=== PATIENT | female | born 1955 | race Caucasian/White ===

== ENCOUNTER 2017-07-01 08:19 | Day surgery (SDC) | payer OTHER ==
[~2017-07-01] VITALS: Ht 162.6 cm; Wt 68.2 kg
[~2017-07-01 08:19] MED LIST: ASPI1TAB57 PO; BLAC200C3 PO; CYCL10TA PO; DILA4TAB10 PO; ECHI500C5 PO; FEXO15TA PO; FIBE625T10 PO; FISH1000 PO; FLAX100013 PO; MULT1TAB46 PO; PROB1CAP12; PYRI100T PO; SELE200T8 PO; VITA20003; VITA200T8; VITA250T3 PO; VITA500T35 PO; VITA600C4 PO; VITACAP7 PO; ZOFR4TAB PO
[2017-07-01] MEDS ORDERED: IOHEXOL 300 MG/ML 50 ML BTL (for RAD DIAG) IT ONE (08:20)
[2017-07-01 08:35] VITALS: BP 128/80; PULSE 80; RESP 20; TEMP 98; O2SAT 98
[2017-07-01] MEDS ORDERED: SODIUM CHLOR 0.9% 1000 ML INJ 1,000 ML IV SCH (09:00)
[2017-07-01 09:10] LABS: APTT (PATIENT) 24.8 SEC (24.3-30.1); INTERNATIONAL NORMALIZED RATIO 0.9 RATIO; PROTHROMBIN TIME - PATIENT 10.3 SEC (9.8-11.6)
[2017-07-01 09:15] LABS: BICARBONATE 25.6 MEQ/L (21.0-32.0); POTASSIUM 4.1 MEQ/L (3.5-5.1)
[2017-07-01] MEDS ORDERED: VITA250T3 PO (09:16)
[2017-07-01] MEDS ORDERED: GLUC15009 PO (09:16)
[2017-07-01] MEDS ORDERED: PERC5TAB12 PO (09:16)
[2017-07-01] MEDS ORDERED: CIPR250T52 PO (09:16)
[2017-07-01] MEDS ORDERED: MAGN250T11 PO (09:16)
[2017-07-01] MEDS ORDERED: ZINC30TA PO (09:16)
[2017-07-01] MEDS ORDERED: PROB1CAP12 PO (09:16)
[2017-07-01] MEDS ORDERED: CALC500C16 CHEW (09:16)
[2017-07-01] MEDS ORDERED: FEXO15TA PO (09:16)
--- NOTE | 2017-07-01 11:43 | PD.RAD ---
Post Procedure Progress Note Pre Procedure Diagnosis: (1) Cerebrospinal fluid rhinorrhea Post Procedure Diagnosis: (1) Cerebrospinal fluid rhinorrhea Procedure Date: Jul 01, 2017 Supervising Radiologist: Victor Hugo Nguyen Proceduralist/Assist: Marilyn Newton, RT(R)(CV), Tee Hart RT(R) Anesthesia: Local Plan of Activity Patient to Unit: ROPU Patient Condition: Good See PACS Report for procedural detail/treatment Spinal Procedure Myelogram L2-L3 Fluid Description: Victor Hugo Soni MD Jul 01, 2017 11:43
[2017-07-01 11:45] VITALS: BP 140/71; PULSE 75; RESP 20; TEMP 97.7; O2SAT 98
[2017-07-01] MEDS ORDERED: ACETAMINOPHEN 325 MG TAB PO PRN (11:45)
[2017-07-01] MEDS ORDERED: ONDANSETRON HCL 4 MG/2 ML VIAL IV PUSH PRN (11:45)
[2017-07-01] MEDS ORDERED: HYDROmorphone HCL PF 1 MG/ML VIAL IV ONE (13:00)
[2017-07-01 13:10] VITALS: BP 130/70; PULSE 76; RESP 20; O2SAT 94
--- NOTE | 2017-07-01 13:55 | RADRPT ---
EXAM DATE/TIME: 07/01/2017 11:16 [facility] COMPARISON: No previous studies available for comparison. INDICATIONS : Patient presents with headache and history of Cerebrospinal fluid leak in need of Lumbar Puncture and cisternogram for evaluation. MEDICAL HISTORY : PE DVT CSF leak Headaches SURGICAL HISTORY : RT Nephrectomy Nasal repair Hysterectomy Tubal ligation Appendectomy Rt breast lumpectomy Brain surgery for CSF leak Rt hallux joint replacement ENCOUNTER: Initial ACUITY: 3 weeks PAIN SCORE: 6/10 LOCATION: Headache LUMBAR PUNCTURE TIME: 1133 hours FLUORO TIME: 2.0 minutes IMAGE SERIES: 1 CONTRAST: 7 cc Omnipaque (iohexol) 300 ACCESS LEVEL: L2-3 PROCEDURE : 1. Fluoroscopic guided lumbar puncture. The risks, benefits and alternatives to the procedure were explained and verbal and written consent w as obtained. The site was prepped in sterile fashion. Full sterile technique was used, including ca p, mask, sterile gloves and gown and a large sterile sheet. Hand hygiene and 2% chlorhexidine and/or betadine/alcohol prep was utilized per protocol for cutaneous antisepsis. The skin and subcutaneous tissues were infiltrated with local anesthetic solution. With fluoroscopic guidance the lumbar thecal sac was punctured at the level above. The fluid describ ed above was removed without difficulty. The patient tolerated the procedure well and there were no complications. CONCLUSION: Uncomplicated fluoroscopically guided lumbar puncture. Victor Hugo Nguyen MD on July 01, 2017 at 13:54 Board Certified Radiologist. This report was verified electronically.
[2017-07-01 15:30] VITALS: BP 112/68; PULSE 70; RESP 20; O2SAT 97
--- NOTE | 2017-07-01 16:15 | RADRPT ---
EXAM DATE/TIME: 07/01/2017 14:42 [facility] COMPARISON: No previous studies available for comparison. INDICATIONS : Post cisternogram RADIATION DOSE: 56.35 CTDIvol (mGy) MEDICAL HISTORY : None SURGICAL HISTORY : Appendectomy. Hysterectomy. ENCOUNTER: Initial ACUITY: 1 day PAIN SCALE: 0/10 LOCATION: cranial TECHNIQUE: Multiple contiguous axial images were obtained of the head. Using automated exposure control and adj ustment of the mA and/or kV according to patient size, radiation dose was kept as low as reasonably a chievable to obtain optimal diagnostic quality images. DICOM format image data is available electro nically for review and comparison. FINDINGS: CT scan was performed with multiplanar reconstruction following instillation of intrathecal contrast. The examination does demonstrate a bony defect with leak and contrast in the roof of the of the nasa l cavity and ethmoid air cell on the left. Defect is in the region of the posterior ethmoids on the l eft. No other osseous defects are identified. CONCLUSION: 1. Findings characteristic of CSF leak involving the posterior ethmoids on the left Victor Hugo Nguyen MD on July 01, 2017 at 15:57 Board Certified Radiologist. This report was verified electronically.
== END 2017-07-01 16:15 | disposition home or self-care (01) ==
LOC: HROP 08:19 → HRIP 08:23 → HROP 16:15
PROVIDERS: ATTEND Internal Medicine
DX: G96.0 Cerebrospinal fluid leak (principal)
CPT/HCPCS: 62270; 70450; 77003; 80048; 85610; 85730; J1170; Q9967; 62304